=== PATIENT | female | born 1955 | race Caucasian/White ===

== ENCOUNTER → 2017-01-17 | Outpatient (CLI) | payer BC | END | disposition home or self-care (01) | LOC: CFH 15:46 | PROVIDERS: ATTEND Family Medicine | DX: S09.93XA Unspecified injury of face, initial encounter (principal); J32.0 Chronic maxillary sinusitis; J32.1 Chronic frontal sinusitis; Z98.890 Other specified postprocedural states; X58.XXXA Exposure to other specified factors, initial encounter; Y93.89 Activity, other specified; Y92.89 Other specified places as the place of occurrence of the external cause; Y99.8 Other external cause status | CPT/HCPCS: 70486 ==

== ENCOUNTER → 2017-11-13 | Outpatient (CLI) | payer BC | LOC: CFH 16:19 | PROVIDERS: ATTEND Family Medicine | DX: E04.1 Nontoxic single thyroid nodule (principal) | CPT/HCPCS: 76536 ==

== ENCOUNTER → 2018-02-07 | Outpatient (CLI) | payer BC | END | disposition home or self-care (01) | LOC: CFH 16:30 | PROVIDERS: ATTEND Family Medicine | DX: M51.26 Other intervertebral disc displacement, lumbar region (principal); M51.06 Intervertebral disc disorders with myelopathy, lumbar region | CPT/HCPCS: 72148 ==

== ENCOUNTER 2020-04-21 11:09 | Day surgery (SDC) | payer BC ==
[~2020-04-21] VITALS: Ht 165.1 cm; Wt 55.1 kg
[~2020-04-21 11:09] MED LIST: BACITRACIN 50,000 UNIT ONE; BUPIVACAINE/PF 0.25% ONE; VANCOMYCIN 1,000 MG ONE
[2020-04-21] MEDS ORDERED: LACTATED RINGERS 1,000 ML IV SCH (12:00)
[2020-04-21] MEDS ORDERED: CHLORHEXIDINE 15 ML UDC MM ONE (12:00)
[2020-04-21 12:07] VITALS: BP 149/92
[2020-04-21] MEDS ORDERED: PLEASE ENTER HEIGHT AND WEIGHT MC SCH (12:30)
[2020-04-21] MEDS ORDERED: ALPHA LIPOIC (12:36)
[2020-04-21] MEDS ORDERED: CYCL1DRO EACHEYE (12:36)
[2020-04-21] MEDS ORDERED: DULO30CA2 PO (12:36)
[2020-04-21] MEDS ORDERED: IPRA15SP NAS (12:36)
[2020-04-21] MEDS ORDERED: METO25TA35 PO (12:36)
[2020-04-21] MEDS ORDERED: LANS30CA PO (12:36)
[2020-04-21] MEDS ORDERED: TEST1.257 PO (12:36)
[2020-04-21] MEDS ORDERED: GABA600T7 PO (12:36)
[2020-04-21] MEDS ORDERED: MELO15TA24 PO (12:36)
[2020-04-21] MEDS ORDERED: AMLO10TA8 PO (12:36)
[2020-04-21] MEDS ORDERED: IPRA0.2S35 INH (12:36)
[2020-04-21] MEDS ORDERED: DESL5TAB40 PO (12:36)
[2020-04-21] MEDS ORDERED: PRAS25CA PO (12:36)
[2020-04-21] MEDS ORDERED: THYR30TA PO (12:36)
[2020-04-21] MEDS ORDERED: MONT10TA11 PO (12:36)
[2020-04-21] MEDS ORDERED: LOSA1TAB19 PO (12:36)
[2020-04-21] MEDS ORDERED: OVAR (12:36)
[2020-04-21] MEDS ORDERED: FENTANYL PF 100 MCG/2ML ONE ×3 (13:18→15:38)
[2020-04-21] MEDS ORDERED: MIDAZOLAM 1 MG/ML, 2ML ONE (13:23)
[2020-04-21] MEDS ORDERED: NEOSTIGMINE 1 MG/ML, 10ML ONE (14:45)
[2020-04-21] MEDS ORDERED: GLYCOPYRROLATE 0.2MG/1ML, 5ML ONE (14:45)
[2020-04-21] MEDS ORDERED: DEXAMETHASONE 4 MG/ML, 1ML ONE (14:45)
[2020-04-21] MEDS ORDERED: ONDANSETRON 2MG/ML, 2ML ONE (14:45)
[2020-04-21] MEDS ORDERED: ROCURONIUM 10MG/ML,5ML ONE (14:45)
[2020-04-21] MEDS ORDERED: PROPOFOL 10 MG/ML, 20ML ONE (14:45)
[2020-04-21] MEDS ORDERED: CEFAZOLIN 1,000 MG ONE (14:45)
[2020-04-21] MEDS ORDERED: methylPREDNISolone SOD SUCC 125 MG/2 ML ONE (14:46)
[2020-04-21] MEDS ORDERED: ALBUTEROL SULFATE 2.5 MG/3 ML NPPB PRN (15:00)
[2020-04-21] MEDS ORDERED: METHOCARBAMOL 1,000 MG in DEXTROSE 5% 100 ML IV PRN (15:00)
[2020-04-21] MEDS ORDERED: LABETALOL 5MG/ML, 20ML IV PRN (15:00)
[2020-04-21] MEDS ORDERED: MEPERIDINE/PF 25MG/0.5ML IVPush PRN (15:00)
[2020-04-21] MEDS ORDERED: PROMETHAZINE 25 MG/ML, 1ML IVPush PRN (15:00)
[2020-04-21] MEDS ORDERED: ACETAMINOPHEN 325 MG TABLET PO PRN (15:00)
[2020-04-21] MEDS ORDERED: LORazepam 2 MG/ML, 1ML IVPush PRN (15:00)
[2020-04-21] MEDS ORDERED: hydrALAzine 20 MG/ML, 1ML IV PRN (15:00)
[2020-04-21] MEDS ORDERED: HYDROmorphone 1 MG/ML, 1ML INJ IVPush PRN (15:00)
[2020-04-21] MEDS ORDERED: OXYcodone 5 MG/5 ML ORAL.SOL UDC ONE ×2 (15:38→16:10)
[2020-04-21] MEDS: FENTANYL PF 100 MCG/2ML IV PRN ×4 (15:43→16:13)
[2020-04-21] MEDS: OXYcodone 5 MG/5 ML ORAL.SOL UDC PO PRN ×2 (15:44→16:14)
[2020-04-21] MEDS ORDERED: DIPHENHYDRAMINE 50 MG/ML, 1ML IVPush ONE (17:00)
== END 2020-04-21 18:25 | disposition home or self-care (01) ==
LOC: OUT 11:09
PROVIDERS: ATTEND Neurological Surgery
DX: M51.16 Intervertebral disc disorders with radiculopathy, lumbar region (principal); Z20.828 Contact with and (suspected) exposure to other viral communicable diseases; M48.061 Spinal stenosis, lumbar region without neurogenic claudication; I10 Essential (primary) hypertension; F32.9 Major depressive disorder, single episode, unspecified; K21.9 Gastro-esophageal reflux disease without esophagitis; J45.909 Unspecified asthma, uncomplicated; G47.33 Obstructive sleep apnea (adult) (pediatric); Z79.1 Long term (current) use of non-steroidal anti-inflammatories (NSAID); Z79.890 Hormone replacement therapy; Z79.899 Other long term (current) drug therapy; Z88.2 Allergy status to sulfonamides; Z88.8 Allergy status to other drugs, medicaments and biological substances; Z98.890 Other specified postprocedural states; Z82.61 Family history of arthritis; Z83.3 Family history of diabetes mellitus; Z82.49 Family history of ischemic heart disease and other diseases of the circulatory system; Z82.3 Family history of stroke
CPT/HCPCS: 63042; 72100; 87635; 93005; J0690; J1100; J1200; J2250; J2405; J2704; J2710; J2800; J2930; J3010; J7120; 76000; J3370